=== PATIENT | female | born 1935 | race African-American/Black ===

== ENCOUNTER 2018-05-20 08:17 | Emergency (ER) | payer MEDICARE | END 2018-05-20 11:42 | disposition home or self-care (01) | LOC: E/R 08:17 | DX: M25.552 Pain in left hip (principal); R40.2142 Coma scale, eyes open, spontaneous, at arrival to emergency department; R40.2362 Coma scale, best motor response, obeys commands, at arrival to emergency department; R40.2242 Coma scale, best verbal response, confused conversation, at arrival to emergency department; I10 Essential (primary) hypertension; R93.0 Abnormal findings on diagnostic imaging of skull and head, not elsewhere classified | CPT/HCPCS: 70450; 72125; 99284-25 ==

== ENCOUNTER 2018-06-29 12:50 | Emergency (ER) | payer MEDICARE, OTHER, BC ==
[2018-06-29 13:23] LABS: URINE BLOOD (Dip) POC Trace-intact (NEGATIVE); URINE GLUCOSE (Dip) POC Negative (NEGATIVE); URINE KETONES (Dip) POC Negative (NEGATIVE); URINE LEUKOCYTE EST (Dip) POC 3+ (NEGATIVE); URINE NITRITE (Dip) POC Negative (NEGATIVE); URINE TOTAL PROTEIN POC Negative (NEGATIVE)
[2018-06-29 13:23] LABS: URINE PH (Dip) POC 5.5 (5.0-8.5)
[2018-06-29] MEDS: NITROFURANTOIN (SR) 100 MG CAP PO (14:48)
== END 2018-06-29 19:28 | disposition home or self-care (01) ==
LOC: E/R 12:50
DX: N30.90 Cystitis, unspecified without hematuria (principal); I10 Essential (primary) hypertension; Z79.82 Long term (current) use of aspirin
CPT/HCPCS: 70450; 81003; 99284-25

== ENCOUNTER 2018-06-30 09:19 | Inpatient (IN) | payer MEDICARE, OTHER ==
[2018-06-30] MEDS: CEPHALEXIN 500 MG CAP PO (09:59)
[2018-06-30 11:28] LABS: ADD MAN DIFF? NO
[2018-06-30 11:44] LABS: WHITE BLOOD COUNT 7.3 10^3/ul (4.8-10.8)
[2018-06-30 11:44] LABS: BASOPHILS % 0.4 % (0.0-2.0); EOSINOPHILS % 0.5 % (0.0-7.0); HEMATOCRIT 42.4 % (37.0-47.0); HEMOGLOBIN 13.9 g/dl (12.0-16.0); LYMPHOCYTES # 1.1 10^3/ul (0.8-2.9); LYMPHOCYTES % 14.3 % (15.0-51.0); MEAN CORPUSCULAR HGB CONC 32.8 g/dl (32.0-37.0); MEAN CORPUSCULAR VOLUME 97.7 fl (82.0-101.0); MEAN PLATELET VOLUME 10.4 fl (7.4-10.4); MONOCYTE # 0.4 10^3/ul (0.3-0.9); MONOCYTES % 4.8 % (0.0-11.0); NEUTROPHIL # 5.8 10^3/ul (1.6-7.5); NEUTROPHILS % 79.7 % (39.0-77.0); PLATELET COUNT 245 10^3/UL (140-415); RED BLOOD COUNT 4.34 10^6/ul (4.20-5.40); RED CELL DISTRIBUTION WIDTH 13.3 % (11.5-14.5)
[2018-06-30] MEDS: CEFTRIAXONE 1 GM/50 ML (PMX) 50 ML IVPB (14:02)
[2018-06-30] MEDS: SOD CHLORIDE 0.9% 1,000 ML IV (14:03)
[2018-07-01 00:29] LABS: ADD UMIC YES; UR ASCORBIC ACID NEGATIVE (NEGATIVE); UR BACTERIA FEW /HPF (NONE SEEN); UR BILIRUBIN (Dip) NEGATIVE (NEGATIVE); UR BLOOD (Dip) NEGATIVE (NEGATIVE); UR CLARITY SLIGHTLY CLOUDY (CLEAR); UR COLOR YELLOW (YELLOW); UR GLUCOSE (Dip) NEGATIVE (NEGATIVE); UR KETONES (Dip) NEGATIVE (NEGATIVE); UR LEUKOCYTE ESTERASE (Dip) TRACE Leu/ul (NEGATIVE); UR NITRITE (Dip) NEGATIVE (NEGATIVE); UR RBC 1 /HPF (0-5); UR SPECIFIC GRAVITY (Dip) 1.019 (1.003-1.030); UR SQUAMOUS EPITHELIAL CELL FEW /HPF (FEW); UR TOTAL PROTEIN (Dip) NEGATIVE (NEGATIVE); UR UROBILINOGEN (Dip) NEGATIVE (NEGATIVE); UR WBC 47 /HPF (0-5)
[2018-07-01 05:48] LABS: ADD MAN DIFF? NO
[2018-07-01 05:59] LABS: BASOPHILS % 0.7 % (0.0-2.0); EOSINOPHILS # 0.2 10^3/ul (0.0-0.5); EOSINOPHILS % 2.6 % (0.0-7.0); HEMATOCRIT 37.1 % (37.0-47.0); HEMOGLOBIN 12.1 g/dl (12.0-16.0); LYMPHOCYTES # 1.9 10^3/ul (0.8-2.9); LYMPHOCYTES % 30.6 % (15.0-51.0); MEAN CORPUSCULAR HEMOGLOBIN 31.7 pg (29.0-33.0); MEAN CORPUSCULAR HGB CONC 32.6 g/dl (32.0-37.0); MEAN CORPUSCULAR VOLUME 97.1 fl (82.0-101.0); MEAN PLATELET VOLUME 10.3 fl (7.4-10.4); MONOCYTE # 0.8 10^3/ul (0.3-0.9); MONOCYTES % 12.4 % (0.0-11.0); NEUTROPHIL # 3.3 10^3/ul (1.6-7.5); NEUTROPHILS % 53.2 % (39.0-77.0); PLATELET COUNT 267 10^3/UL (140-415); RED BLOOD COUNT 3.82 10^6/ul (4.20-5.40); RED CELL DISTRIBUTION WIDTH 13.4 % (11.5-14.5)
[2018-07-01 05:59] LABS: WHITE BLOOD COUNT 6.1 10^3/ul (4.8-10.8)
[2018-07-01] MEDS: SOD CHLORIDE 0.9% 1,000 ML IV ×2 (09:30→18:57)
[2018-07-01] MEDS: SERTRALINE 50 MG TAB PO (09:41)
[2018-07-01] MEDS: ASPIRIN 81 MG TAB PO (09:42)
[2018-07-01] MEDS: hydrALAzine 20 MG INJ IV (10:13)
[2018-07-01] MEDS: CEFTRIAXONE 1 GM/50 ML (PMX) 50 ML IVPB (12:48)
[2018-07-01] MEDS: AMLODIPINE 5 MG TAB PO (21:16)
[2018-07-02] MEDS: hydrALAzine 20 MG INJ IV (07:06)
[2018-07-02] MEDS: AMLODIPINE 5 MG TAB PO ×2 (09:01→20:28)
[2018-07-02] MEDS: ASPIRIN 81 MG TAB PO (09:01)
[2018-07-02] MEDS: SERTRALINE 50 MG TAB PO (09:01)
[2018-07-02] MEDS: CEFTRIAXONE 1 GM/50 ML (PMX) 50 ML IVPB (13:16)
[2018-07-02] MEDS ORDERED: LIDOCAINE 1% (MPF) 5 ML VIAL SC (14:30)
[2018-07-02 16:55] LABS: ALANINE AMINOTRANSFERASE 20 IU/L (13-69); ALBUMIN 3.9 g/dl (3.3-4.9); ALBUMIN/GLOBULIN RATIO 0.95; ALKALINE PHOSPHATASE 96 IU/L (42-121); ANION GAP 3 (5-13); ASPARTATE AMINO TRANSFERASE 29 IU/L (15-46); BILIRUBIN,INDIRECT 0.3 mg/dl (0-1.1); BILIRUBIN,TOTAL 0.3 mg/dl (0.2-1.3); BLOOD UREA NITROGEN 18 mg/dl (7-20); CALCIUM 9.5 mg/dl (8.4-10.2); CARBON DIOXIDE 33 mmol/L (21-31); CHLORIDE 107 mmol/L (97-110); CREATININE 0.65 mg/dl (0.44-1.00); GLUCOSE 95 mg/dl (70-220); MAGNESIUM 1.9 mg/dl (1.7-2.5); SODIUM 143 mmol/L (135-144)
[2018-07-02 16:56] LABS: POTASSIUM 3.9 mmol/L (3.5-5.1)
[2018-07-02 20:42] LABS: AMMONIA < 9 umol/l (9-30)
[2018-07-03] MEDS: hydrALAzine 20 MG INJ IV (02:55)
[2018-07-03] MEDS: ASPIRIN 81 MG TAB PO (08:48)
[2018-07-03] MEDS: AMLODIPINE 5 MG TAB PO ×2 (08:48→21:14)
[2018-07-03] MEDS: SERTRALINE 50 MG TAB PO (08:48)
[2018-07-03] MEDS: CEFTRIAXONE 1 GM/50 ML (PMX) 50 ML IVPB ×2 (13:30→14:36)
[2018-07-03] MEDS: ACETAMINOPHEN 325 MG TAB PO (21:15)
[2018-07-04] MEDS: ASPIRIN 81 MG TAB PO (08:34)
[2018-07-04] MEDS: SERTRALINE 50 MG TAB PO (08:34)
[2018-07-04] MEDS: AMLODIPINE 5 MG TAB PO (08:35)
[2018-07-04] MEDS: hydrALAzine 20 MG INJ IV (12:50)
[2018-07-04] MEDS: CEFTRIAXONE 1 GM/50 ML (PMX) 50 ML IVPB (12:51)
[2018-07-04] MEDS ORDERED: DONEPEZIL 5 MG TAB PO (21:00)
[2018-07-05 18:27] LABS: HOMOCYSTEINE - CARDIOVASCULAR 13.7 umol/L (<10.4)
== END 2018-07-04 14:23 | DRG 92 ==
LOC: E/R 09:19 → PP2 07-03 20:40
PROVIDERS: Internal Medicine Nephrology
DX: G92 Toxic encephalopathy (principal); N39.0 Urinary tract infection, site not specified; E86.0 Dehydration; Z91.81 History of falling; F41.8 Other specified anxiety disorders; I10 Essential (primary) hypertension; E78.5 Hyperlipidemia, unspecified; G31.84 Mild cognitive impairment of uncertain or unknown etiology
CPT/HCPCS: 36415; 76856; 80053; 81001; 82140; 82607; 83090; 83735; 83921; 84443; 85025; 87086; 97116; 97162; 97530; 99285-25; G0378